=== PATIENT | female | born 1965 | race Caucasian/White ===

== ENCOUNTER 2024-01-26 03:59 | Emergency (ER) | payer BC, SELFPAY ==
[2024-01-26 03:59] VITALS: BP 198/119; PULSE 98; RESP 18; TEMP 36.8; O2SAT 96; BMI 21.7
--- NOTE | 2024-01-26 04:09 | HMH.EDGENADL ---
Discharge Plan Disposition Patient Disposition: Home, Self-Care Condition: Good Activity Restrictions/Add. Instructions Additional Instructions/Restrictions: You were evaluated in the ER and are appropriate for discharge at this time. Keep the wound clean and dry. The stitches will fall out on their own. Once the wound is completely healed, use sunscreen and vitamin E oil to help limit scarring. Follow-up with your primary care doctor in 3 days for reevaluation. Return to the ER with new, worsening, or otherwise concerning symptoms. Clinical Impressions Clinical Impression: Laceration Instructions Patient Instructions: DI for Laceration Repair Discharge ED Provider: Amalia Noble Adult HPI General Chief complaint: Wound/Laceration Stated complaint: laceration Time Seen by Provider: 01/26/24 04:01 History of Present Illness HPI narrative: 58-year-old female with a history of hypertension, COPD presents to the ER for complaint of left eyebrow laceration. Patient reports that she tripped striking her left eyebrow on a bucket and striking her right eyebrow on a chair. She denies losing consciousness. She does not take any blood thinners. Denies any neck pain, numbness, tingling, weakness. Patient has been ambulatory since the incident. She denies any fevers, chills, chest pain, difficulty breathing, nausea, vomiting, diarrhea. EMS transported the patient to the ER for laceration repair. They report she was mildly tachycardic and hypertensive in route. Patient has no complaints aside from the laceration at this time. Patient admits to marijuana use earlier today but denies other illicit drugs, no alcohol today. Related Data Allergies Allergy/AdvReac Type Severity Reaction Status Date / Time No Known Allergies Allergy Verified 01/26/24 04:20 [facility] Disclaimer: The information contained in this section may have been updated after the patient was seen, as this information can be updated by other users. Social History Smoking Status: Current every day smoker alcohol intake: current current occupational status: other Travel in the last 8 weeks: None ROS Obtained: Yes All systems reviewed & no additional complaints except as documented Positive ROS per HPI Physical Exam General General appearance: alert and in no apparent distress Head Head exam: normocephalic and other (Small hematoma over right eyebrow, no underlying deformity, soft, mobile. 1 cm laceration just superior to lateral edge of left eyebrow. Hemostatic. Small hematoma, no underlying deformity appreciated) Eye Eye exam: Present PERRL, EOMI and other (No hyphema); Absent conjunctival redness ENT ENT exam: Present mucous membranes moist Neck Neck exam: Present normal inspection and full ROM; Absent tenderness Chest Chest inspection: Present symmetric chest wall rise; Absent tenderness Respiratory Respiratory exam: Present normal lung sounds bilaterally; Absent respiratory distress, wheezes or stridor Cardiovascular Cardiovascular exam: Present regular rate and normal rhythm Abdominal Exam Abdominal exam: Present soft; Absent distention, tenderness, guarding or rebound Extremities Exam Extremities exam: Present full ROM and other (No findings of injury on exam of extremities); Absent tenderness, edema or joint swelling Back Exam Back exam: Absent tenderness Neurological Exam Neurological exam: Present alert and oriented X3; Absent motor sensory deficit Psychiatric Psychiatric exam: Present normal affect and normal mood Skin Skin exam: Present warm and dry Medical Decision Making Guillermo Inquiry Pt receiving controlled substance: No Vital Signs: 01/26/24 03:59 Temperature 98.3 F Temperature Source Oral Pulse Rate [Left] 98 H Respiratory Rate 18 Blood Pressure [Right Arm] 198/119 H Blood Pressure Mean [Right Arm] 145 02 Sat by Pulse Oximetry 96 Oxygen Delivery Method Room Air Orders (Tests/Meds): ED M
[2024-01-26 05:32] VITALS: BP 182/105; PULSE 99; RESP 18; TEMP 36.9; O2SAT 99
== END 2024-01-26 05:30 | disposition home or self-care (01) ==
PROVIDERS: Emergency Provider Emergency Medicine; PCP Family Medicine
DX: S00.11XA Contusion of right eyelid and periocular area, initial encounter (principal); S01.112A Laceration without foreign body of left eyelid and periocular area, initial encounter; I10 Essential (primary) hypertension; R00.0 Tachycardia, unspecified; W01.190A Fall on same level from slipping, tripping and stumbling with subsequent striking against furniture, initial encounter; Y92.9 Unspecified place or not applicable; J44.9 Chronic obstructive pulmonary disease, unspecified
CPT/HCPCS: 12011; 90715; 96372; 99284

== ENCOUNTER 2024-06-26 17:33 | Emergency (ER) | payer MEDICAID, SELFPAY ==
[2024-06-26 17:33] VITALS: BP 212/121; PULSE 93; RESP 20; TEMP 36.6; O2SAT 100; BMI 21.7
[2024-06-26 18:03] VITALS: BP 175/121
--- NOTE | 2024-06-26 18:04 | HMH.EDGENADL ---
Discharge Plan Disposition Patient Disposition: Home, Self-Care Chief Complaint: Recheck/Abnormal Lab/Rx Referrals Follow up/Referrals: Craig Juarez [Primary Care Provider] - See instructions Activity Restrictions/Add. Instructions Additional Instructions/Restrictions: At this time it was felt you are safe to be discharged home. If new or worsening symptoms please do not hesitate to return the emergency department. Clinical Impressions Clinical Impression: Asymptomatic hypertension, Encounter for medication refill Print Language Print Language: Malay Discharge ED Provider: Jaison Whiting General Adult HPI General Chief complaint: Recheck/Abnormal Lab/Rx Stated complaint: HI BP Time Seen by Provider: 06/26/24 17:39 Mode of Arrival: EMS Source of Information: Patient and EMS Limitations: No Limitations Description of Symptoms (Recalled from ER Triage Doc. by RN): pt states she has been out of BP meds for one month, says she is living with her sister and they have christiano froze inside of a car History of Present Illness HPI narrative: Patient is a 58-year-old female with past medical history of longstanding hypertension that is currently trying to be controlled with medications who presents emergency department for evaluation of high blood pressure. She took it at home and it was in the high 190s and she began to see spots which she has seen multiple times before when her blood pressure gets above 190. No headache, no chest pain, no other acute complaints at this time. She contacted 911 because she does not have her medication filled as they fell out of her pocket a month ago and she has been unable to take them. She thinks it is lisinopril. Upon arrival after sitting in bed with her blood pressure in the 170s she says that she has no symptoms, no seeing spots, no chest pain, no abdominal pain reported, no other acute complaints at this time. Related Data Home Medications ?Medication ?Instructions ?Recorded ?Confirmed lisinopril 40 mg tablet 40 mg PO DAILY 06/26/24 06/26/24 Allergies Allergy/AdvReac Type Severity Reaction Status Date / Time No Known Allergies Allergy Verified 01/26/24 04:20 [facility] Disclaimer: The information contained in this section may have been updated after the patient was seen, as this information can be updated by other users. Social History (Updated 01/26/24 @ 05:16 by Amalia Noble MD) Smoking Status: Current every day smoker alcohol intake: current current occupational status: other Travel in the last 8 weeks: None Have you lived/traveled outside [place] in past 30 days?: No Contact w/someone who lives/traveled outside [place] past 30 days?: No Exposure to someone with infectious disease in past 14 days?: No Do you have a fever (greater than 100.4 F or 38 C)?: No Have you tested positive for COVID-19: No Exposed to someone with COVID-19 in past 14 days?: No Do you have a sore throat?: No Do you have a cough?: No Do you have any weakness?: No Do you have any diarrhea?: No Are you experiencing any unusual bleeding?: No Do you have any muscle aches/pain?: No Do you have any abdominal pain?: No Are you experiencing loss of taste or smell?: No ROS Obtained: Yes Systems reviewed as appropriate & no additional complaints except as documented Physical Exam General General appearance: alert and in no apparent distress Head Head exam: atraumatic and normocephalic Eye Eye exam: Present PERRL ENT ENT exam: Present mucous membranes moist Neck Neck exam: Present normal inspection Chest Chest inspection: Present normal inspection and symmetric chest wall rise Respiratory Respiratory exam: Present normal lung sounds bilaterally; Absent respiratory distress Cardiovascular Cardiovascular exam: Present regular rate and normal rhythm Abdominal Exam Abdominal exam: Present soft; Absent tenderness Extremities Exam Extremities exam: Present normal inspection Neurological Exam Neurological exam: Present alert, oriented X3 and CN II-XII intact Psychiatric Psychiatric exam: Present normal affect Skin Skin exam: Present warm and dry Medical Decision Making Medical Records Screening: Per USPSTF and CDC recommendations, given the prevalence of disease in our region, it is our hospital?s policy to screen for HIV and viral Hepatitis for all patients aged 18 and over and those with ongoing risk factors. Guillermo Inquiry Pt receiving controlled substance: No Vital Signs: 06/26/24 17:33 Temperature 97.9 F Temperature Source Oral Pulse Rate [Left Radial] 93 H Respiratory Rate 20 Blood Pressure [Right Arm] 212/121 H Blood Pressure Mean [Right Arm] 151 02 Sat by Pulse Oximetry 100 Oxygen Delivery Method Room Air Medical Decision Narrative: In summary patient is a 58-year-old female past medical history described above presents emergency department for evaluation of elevated blood pressure. Patient is asymptomatic upon arrival, after sitting in bed for a few minutes recycle blood pressures in the 170s systolic. She does not have any visual complaints and has seen spots when it is above 190 multiple times before. She has no chest pain, no symptoms. Given that she has asymptomatic hypertension workup with labs and imaging was considered but will be deferred at this time. It was further found out that patient takes 40 mg of lisinopril daily for which patient will be given a dose in the emergency department and will be discharged with a prescription for lisinopril to bridge her to her PCP follow-up. She was given multiple extensive return precautions and verbalized understanding is appropriate for outpatient management at this time. Critical Care Critical Care Time Critical Care Time: No
[2024-06-26] MEDS: LISINOPRIL 20MG TABLET 40 MG PO (18:12)
[2024-06-26 18:35] VITALS: BP 166/91; PULSE 70; RESP 20; TEMP 36.8; O2SAT 98
--- NOTE | 2024-06-26 18:37 | PC.NURSE ---
PT D/C TO LOBBY TO WAIT ON RIDETIARRA PT IS ALOX4, PROVIDED WITH FOOD
== END 2024-06-26 18:39 | disposition home or self-care (01) ==
PROVIDERS: Emergency Provider Emergency Medicine; PCP Family Medicine
DX: I10 Essential (primary) hypertension (principal); H53.8 Other visual disturbances; Z76.0 Encounter for issue of repeat prescription; Z72.0 Tobacco use
CPT/HCPCS: 99283

== ENCOUNTER 2025-02-28 05:17 | Observation (INO) | payer MEDICAID, SELFPAY ==
[2025-02-28] VITALS (52 sets, daily range): BP systolic 124–199; BP diastolic 66–127; PULSE 78–113; RESP 15–29; TEMP 36–36.8; O2SAT 90–100; BMI 25.3; BMI 22.0
--- NOTE | 2025-02-28 05:14 | XR_ITS ---
PROCEDURE INFORMATION: Exam: XR Chest Exam date and time: 02/28/2025 5:24 AM Age: 59 years old Clinical indication: Other: Respiratory distress TECHNIQUE: Imaging protocol: Radiologic exam of the chest. Views: 1 view. COMPARISON: No relevant prior studies available. FINDINGS: Lungs: Mild hyperinflation and hyperlucency with diffuse chronic interstitial changes consistent with likely underlying COPD. Some mildly increased airspace opacities seen in the right mid and lower chest which may represent developing superimposed infiltrate. Pleural spaces: Unremarkable. No pleural effusion. No pneumothorax. Heart/Mediastinum: Unremarkable. No cardiomegaly. Bones/joints: Unremarkable. IMPRESSION: Mild hyperinflation and hyperlucency with diffuse chronic interstitial changes consistent with likely underlying COPD. Some mildly increased airspace opacities seen in the right mid and lower chest which may represent developing superimposed infiltrate.
[2025-02-28 05:19] LABS: VBG HCO3 13.4 mmol/L (23-30); VBG PO2 87.3 mmol/L (28-40)
--- NOTE | 2025-02-28 05:19 | ECG_ITS ---
APPROVED REPORT Exam: Resting ECG HR:105 bpm ECG Measurements Heart Rate [address] 112 P 71 QRSd 89 QRS 56 QT 373 T 83 QTc 434 Conclusion SINUS TACHYCARDIA WITH SHORT CT INTERVAL ABNORMAL RHYTHM ECG UNCONFIRMED REPORT Electronically signed by : SAV BEAN, 02/28/2025 22:57:50
[2025-02-28 05:25] LABS: Alanine Aminotransferase 47 U/L (12-78); Albumin Level 4.3 g/dl (3.5-5.0); Albumin/Globulin Ratio 1.4 (1.1-1.8); Alkaline Phosphatase 90 U/L (38-126); Anion Gap 24.4 mEq/L (5-15); Aspartate Amino Transferase 117 U/L (14-36); Bilirubin,Total 0.6 mg/dl (0.2-1.3); Blood Urea Nitrogen 19 mg/dl (7-17); Calcium 8.9 mg/dl (8.4-10.2); Carbon Dioxide 14 mmol/L (22.0-30.0); Chloride 104 mmol/L (98-107); Creatinine,Serum 1.10 mg/dl (0.52-1.04); Estimated Glomerular Filt Rate 51 ml/min (>60); GFR (African American) 61 ML/MIN (>60); Globulin 3.0 g/dL (1.3-3.2); Glucose 269 mg/dl (74-100); Potassium 3.4 mmoL/L (3.5-5.1); Sodium 139 mmol/L (136-145); Total Protein,Serum 7.3 g/dl (6.3-8.2)
[2025-02-28] MEDS: IPRATROPIUM/ALBUTEROL 3 ML NEB 6 ML IH (05:25)
[2025-02-28 05:36] LABS: Hematocrit 44.4 % (37.0-47.0); Hemoglobin 13.8 g/dL (12.2-16.2); Immature Granulocytes % 0.8 %; Mean Corpuscular HGB Conc 31.1 g/dL (31.8-35.4); Mean Corpuscular Hemoglobin 31.3 pg (27.0-31.2); Mean Corpuscular Volume 100.7 fl (81-99); Nucleated Red Blood Cells % 0 %; Platelet Count 377 K/mm3 (142-424); Red Blood Count 4.41 M/mm3 (4.20-5.40); Red Cell Distribution Width-SD 47.1 fL; White Blood Count 11.3 K/mm3 (4.8-10.8)
[2025-02-28 05:37] LABS: NT Pro Brain Natriuretic Pep. 1500 pg/mL (0-125)
[2025-02-28 05:39] LABS: Lactate Venous 10.3 mmol/L (0.4-2.0); Troponin I < 0.01 ng/ml (0.00-0.034); VBG PCO2 54.1 mmol/L (35-51); VBG PH 7.01 mmol/L (7.31-7.41)
[2025-02-28] MEDS: NITROGLYCERIN IN 5 % DEXTROSE 250 ML 3 MG IV (05:43)
[2025-02-28 05:51] LABS: Creatine Kinase 84 U/L (30-135)
[2025-02-28 05:52] LABS: D-Dimer 1.63 ug/mL (0.0-0.5); Magnesium 2.2 mg/dl (1.6-2.3); Phosphorous 6.1 mg/dl (2.5-4.5)
--- NOTE | 2025-02-28 06:04 | HMH.EDGENADL ---
Discharge Plan Disposition Patient Disposition: Admitted Prescriptions Prescriptions: No Action lisinopril 40 mg Tablet 40 mg PO DAILY lisinopril 40 mg tablet 40 mg PO DAILY Qty: 30 0RF Rx Instructions: Do not combine with other lisinopril Referrals Follow up/Referrals: Provider,MD Raulito [Primary Care Provider, Medical] - See instructions Clinical Impressions Clinical Impression: Flash pulmonary edema, Respiratory failure with hypoxia, Pneumonia Print Language Print Language: Italian Discharge ED Provider: Casimiro Saab General Adult HPI General Chief complaint: Shortness of Breath/Dyspnea Stated complaint: Respitory distress Time Seen by Provider: 02/28/25 05:20 Mode of Arrival: EMS Source of Information: Patient and EMS Description of Symptoms (Recalled from ER Triage Doc. by RN): PT brought to the ED for evaluation of Respiratory Distress. PT stated she had been feeling bad since 0200 on this date. History of Present Illness HPI narrative: 59-year-old female with reported history of COPD and hypertension presents for severe respiratory distress. Per EMS, she was found on the ground in a position satting in the low 80s, sounding stridorous. On arrival patient is in severe respiratory distress and is unable to effectively communicate. Reports that she has been feeling bad since 2 AM. Related Data Home Medications ?Medication ?Instructions ?Recorded ?Confirmed lisinopril 40 mg tablet 40 mg PO DAILY 06/26/24 06/26/24 Previous Rx's ?Medication ?Instructions ?Recorded lisinopril 40 mg tablet 40 mg PO DAILY HTN #30 tabs 06/26/24 Allergies Allergy/AdvReac Type Severity Reaction Status Date / Time No Known Allergies Allergy Verified 01/26/24 04:20 [facility] Disclaimer: The information contained in this section may have been updated after the patient was seen, as this information can be updated by other users. Social History (Updated 01/26/24 @ 05:16 by Amalia Noble MD) Smoking Status: Current every day smoker alcohol intake: current current occupational status: other Travel in the last 8 weeks?: None Have you lived/traveled outside [place] in past 30 days?: No Contact w/someone who lives/traveled outside US past 30 days?: No Exposure to someone with infectious disease in past 14 days?: No Do you have a fever (greater than 100.4 F or 38 C)?: No Have you tested positive for COVID-19?: No Exposed to someone with COVID-19 in past 14 days?: No Do you have a sore throat?: No Do you have a cough?: No Do you have any weakness?: No Do you have any diarrhea?: No Are you experiencing any unusual bleeding?: No Do you have any muscle aches/pain?: No Do you have any abdominal pain?: No Are you experiencing loss of taste or smell?: No ROS Obtained: Yes All systems reviewed & no additional complaints except as documented Physical Exam General General appearance: alert and in distress Head Head exam: atraumatic and normocephalic Eye Eye exam: Present normal appearance, PERRL and EOMI ENT ENT exam: Present normal oropharynx and normal external ear exam Neck Neck exam: Present normal inspection and full ROM Chest Chest inspection: Present normal inspection and symmetric chest wall rise; Absent tenderness Respiratory Respiratory exam: Present respiratory distress (Tachypneic to the mid 40s, no significant wheezing, expiratory phase is not prolonged) and accessory muscle use; Absent stridor Cardiovascular Cardiovascular exam: Present normal rhythm and tachycardia Abdominal Exam Abdominal exam: Present soft; Absent distention, tenderness or guarding Extremities Exam Extremities exam: Present normal inspection; Absent edema or joint swelling Back Exam Back exam: Present normal inspection; Absent tenderness Neurological Exam Neurological exam: Present alert; Absent motor sensory deficit Psychiatric Psychiatric exam: Present agitated and anxious Skin Skin exam: Present warm, dry and normal color Lymphatic Lymphatic Findings: no adenopathy Medical Decision Making Medical Records Medical records reviewed: Yes I reviewed the patient's medical records. Screening: Per USPSTF and CDC recommendations, given the prevalence of disease in our region, it is our hospital?s policy to screen for HIV and viral Hepatitis for all patients aged 18 and over and those with ongoing risk factors. Guillermo Inquiry Pt receiving controlled substance: No Guillermo was queried for this patient: No Vital Signs: 02/28/25 05:25 02/28/25 05:25 02/28/25 05:30 Temperature Temperature Source Pulse Rate 98 H 98 H Pulse Rate [Right] Respiratory Rate Blood Pressure 199/127 H Blood Pressure [Right Arm] Blood Pressure Mean 151 Blood Pressure Mean [Right Arm] 02 Sat by Pulse Oximetry Oxygen Delivery Method Fraction of Inspired Oxygen 02/28/25 05:33 02/28/25 05:33 02/28/25 06:00 Temperature Temperature Source Pulse Rate 87 Pulse Rate [Right] 113 H Respiratory Rate 24 23 Blood Pressure 192/110 H Blood Pressure [Right Arm] 199/127 H Blood Pressure Mean 149 Blood Pressure Mean [Right Arm] 151 02 Sat by Pulse Oximetry 100 100 Oxygen Delivery Method BiPAP BiPAP Fraction of Inspired Oxygen 80 02/28/25 06:10 02/28/25 06:13 02/28/25 06:15 Temperature 96.8 F L 96.8 F L 96.8 F L Temperature Source Pulse Rate 100 H 99 H 92 H Pulse Rate [Right] Respiratory Rate 22 27 H 21 Blood Pressure 170/104 H 185/121 H 171/116 H Blood Pressure [Right Arm] Blood Pressure Mean 131 133 128 Blood Pressure Mean [Right Arm] 02 Sat by Pulse Oximetry 100 100 100 Oxygen Delivery Method Fraction of Inspired Oxygen 02/28/25 06:16 02/28/25 06:20 02/28/25 06:25 Temperature 97.0 F L 97.0 F L 97.0 F L Temperature Source Core Pulse Rate 101 H 99 H 97 H Pulse Rate [Right] Respiratory Rate 20 29 H 25 H Blood Pressure 171/116 H 154/99 H 139/89 Blood Pressure [Right Arm] Blood Pressure Mean 117 107 Blood Pressure Mean [Right Arm] 02 Sat by Pulse Oximetry 100 100 100 Oxygen Delivery Method BiPAP Fraction of Inspired Oxygen 02/28/25 06:28 02/28/25 06:45 02/28/25 06:46 Temperature 96.8 F L Temperature Source Core Pulse Rate 97 H 95 H 95 H Pulse Rate [Right] Respiratory Rate 25 H 18 22 Blood Pressure 139/89 186/114 H 175/113 H Blood Pressure [Right Arm] Blood Pressure Mean 126 128 Blood Pressure Mean [Right Arm] 02 Sat by Pulse Oximetry 100 96 97 Oxygen Delivery Method BiPAP Fraction of Inspired Oxygen 02/28/25 07:25 Temperature Temperature Source Pulse Rate Pulse Rate [Right] Respiratory Rate Blood Pressure Blood Pressure [Right Arm] Blood Pressure Mean Blood Pressure Mean [Right Arm] 02 Sat by Pulse Oximetry 100 Oxygen Delivery Method CPAP Fraction of Inspired Oxygen Lab Data Lab results reviewed: Yes I reviewed the patient's lab results. Lab Results 02/28/25 04:50: WBC 11.3 H, RBC 4.41, Hgb 13.8, Hct 44.4, MCV 100.7 H, MCH 31.3 H, MCHC 31.1 L, RDW 12.5, Plt Count 377, MPV 10.8 H, Neut % (Auto) 45.5, Lymph % (Auto) 43.7, [place] % (Auto) 6.9, Eos % (Auto) 2.6, Baso % (Auto) 0.5, Neut # (Auto) 5.1, Lymph # (Auto) 4.9 H, [place] # (Auto) 0.8, Eos # (Auto) 0.3, Baso # (Auto) 0.1, VBG pH 7.01 L, VBG pCO2 54.1 H, VBG pO2 87.3 H, VBG HCO3 13.4 L, VBG Total CO2 15.1 L, VBG O2 Saturation 91.4 H, VBG Base Excess -17.6 L, VBG Lactic Acid 10.3 H, Sodium 139, Potassium 3.4 L, Chloride 104, Carbon Dioxide 14 L, Anion Gap 24.4 H, BUN 19 H, Creatinine 1.10 H, Estimated GFR 51 L, Est GFR ( Amer) 61, Glucose 269 H, Calcium 8.9, Total Bilirubin 0.6, AST 117 H, ALT 47, Alkaline Phosphatase 90, Troponin I < 0.01, NT-Pro-B Natriuret Pep 1500 H, Total Protein 7.3, Albumin 4.3, Globulin 3.0, Albumin/Globulin Ratio 1.4 02/28/25 05:12: D-Dimer 1.63 H, Phosphorus 6.1 H, Magnesium 2.2, Total Creatine Kinase 84, TSH 4.76 H, Thyroxine (T4) 6.9 02/28/25 06:10: VBG pH 7.22 L, VBG pCO2 58.9 H, VBG pO2 27.9 L, VBG HCO3 23.7, VBG Total CO2 25.5, VBG O2 Saturation 37.8 L, VBG Base Excess -4.0 L, VBG Lactic Acid 2.8 H, Urine Color Yellow, Urine Appearance Clear, Urine pH 6.0, Ur Specific [place] 1.020, Urine Protein 2+ A, Urine Glucose (UA) 1+, Urine Ketones Negative, Urine Blood 1+ A, Urine Nitrate Negative, Urine Bilirubin Negative, Urine Urobilinogen 0.2, Ur Leukocyte Esterase Negative, Urine RBC 10-20, Urine WBC 3-5, Ur Squamous Epith Cells Occasional, Urine Bacteria 2+, Urine Opiates Screen Negative, Urine Methadone Screen Negative, Ur Barbituates Screen Negative, Ur Phencyclidine Scrn Negative, Ur Amphetamines Screen Positive H, U Benzodiazepines Scrn Negative, Urine Cocaine Screen Negative, U Marijuana (THC) Screen Negative 02/28/25 04:50 02/28/25 04:50 Orders (Tests/Meds): ED MEDICATIONS Generic Name Dose Route Start Last Admin Trade Name Freq PRN Reason Stop Dose Admin Nitroglycerin/Dextrose 250 mls @ 3 mls/hr 02/28/25 05:45 02/28/25 07:13 Nitroglycerin 50mg/250ml D5w IV 03/30/25 05:44 0 mcg/min .Q24H ALAINA 0 mls/hr Protocol Titration 10 MCG/MIN Levofloxacin/Dextrose 750 mg in 150 mls @ 100 mls/hr 02/28/25 06:00 02/28/25 07:17 Levofloxacin 750mg/150ml Premix IV 03/10/25 05:59 100 mls/hr Q24H ALAINA Administration Discontinued Medications Generic Name Dose Route Start Last Admin Trade Name Freq PRN Reason Stop Dose Admin Albuterol/Ipratropium 6 ml 02/28/25 05:37 02/28/25 05:25 Ipratropium/Albuterol 3 Ml Neb IH 02/28/25 05:38 6 ml ONCE ONE Administration Furosemide 80 mg 02/28/25 05:35 02/28/25 06:12 Furosemide 40mg/4ml Vial IV 02/28/25 05:36 80 mg ONCE ONE Administration Iopamidol 80 ml 02/28/25 06:38 02/28/25 06:39 Iopamidol-370 (76%);100ml Bottle IV 02/28/25 06:39 80 ml ONCE ONE Administration Sodium Chloride 50 ml 02/28/25 06:38 02/28/25 06:39 0.9 % Sodium Chloride 50 Ml Vial IV 02/28/25 06:39 50 ml ONCE ONE Administration Sodium Chloride 10 ml 02/28/25 06:38 02/28/25 06:39 Sodium Chloride 0.9% 10ml Syr (Rad Only) IV 02/28/25 06:39 10 ml ONCE ONE Administration ORDERS Category Date Time Status CTA Chest [CT angio chest - dissection] Stat Cat Scan 02/28/25 06:08 Completed CXR --portable [XR chest portable] Stat Exams 02/28/25 05:14 Completed POCUS Point of Care (ER Only) Stat Exams 02/28/25 05:34 Completed BNP [NT Pro Brain Natriuretic Pep.] Stat Lab 02/28/25 04:50 Completed CBC w/Auto Diff [Complete Blood Count Auto Diff] Stat Lab 02/28/25 04:50 Completed CK [Creatine Kinase] Stat Lab 02/28/25 05:12 Completed CMP [Comprehensive Metabolic Panel] Stat Lab 02/28/25 04:50 Completed D-Dimer Stat Lab 02/28/25 05:12 Completed HIV Combo Stat Lab 02/28/25 05:12 Received Hepatitis C Ab Qual. W/ RFX Stat Lab 02/28/25 05:12 Received Magnesium Stat Lab 02/28/25 05:12 Completed Phosphorous Stat Lab 02/28/25 05:12 Completed T4 (Thyroxine) Stat Lab 02/28/25 05:12 Completed TSH [Thyroid Stimulating Hormone] Stat Lab 02/28/25 05:12 Completed Troponin I Q3H Lab 02/28/25 04:50 Completed Troponin I Q3H Lab 02/28/25 08:15 Ordered UA [Urinalysis and Microscopic] Stat Lab 02/28/25 06:10 Completed UDS [Drug Screen,Urine] Stat Lab 02/28/25 06:10 Completed Urine Culture Stat Micro 02/28/25 06:10 Received VBG [Venous Blood Gas] Stat RT 02/28/25 04:50 Completed VBG [Venous Blood Gas] Stat RT 02/28/25 06:10 Completed ECG Data Tracing #1: I reviewed this ECG and interpreted as documented below: Sinus tachycardia, no significant ST elevation, rate of 105 ECG initial impression date: 02/28/25 ECG initial impression time: 05:19 HEART Score History (anamnesis): Moderately suspicious ECG: Normal Age: 45-65 years Risk factors: 1-2 risk factors Troponin: </= normal limit HEART Score: 3 Medical Decision Narrative: 59-year-old female with history of hypertension and COPD presents for respiratory distress. History was obtained via interactive discussion with patient, EMS, chart review. On arrival, patient is afebrile, hypertensive with systolics 200, satting low mid 90s on EMS, improved from 80s, severe respiratory distress with respiratory rate in the 40s., moving all extremities spontaneously. Full physical exam performed and significant for no significant wheezing, bilateral breath sounds present, faint crackles. Differential includes but is not limited to COPD exacerbation, heart failure, sympathetic crashing pulmonary edema, pneumothorax, PE, dissection. Chest x-ray independently interpreted by me faint pulmonary edema, no pneumothorax. Bedside ultrasound shows diffuse B-lines consistent with pulmonary edema, diastolic dysfunction with grossly poor EF, dynamic RV. Patient was immediately placed on BiPAP with significant improvement in respiratory distress. Given DuoNeb x 2, 60 of Lasix, initiated on nitro drip, given Levaquin for possible infection. Workup initiated including broad-spectrum labs, VBG, chest x-ray, CTA chest. On re-evaluation, patient markedly improved after BiPAP and nitro drip. Laboratory workup independently interpreted by me and significant for initial VBG with pH 7.0, lactate of 10, pCO2 only minimally elevated. Repeat VBG after interventions shows pH of 7.22, lactate of 2.8, stable pCO2. BNP elevated at 1500, D-dimer elevated 1.6, negative initial troponin, mild leukocytosis noted. Imaging independently interpreted by me and significant for possible dependent airspace disease, pulmonary edema see radiology read for full review of final results. Given patient history, exam and workup, patient's presentation most likely represents flash pulmonary edema. Patient markedly improved after BiPAP, nitro drip. Procedures Risk/Benefits of Procedure(s) Were Explained: Yes Limited Ultrasound Indication:: Limited cardiac ultrasound Indication: Shortness of air Views Obtained: PLAX, PSAX, Apical 4-chamber, Subxiphoid Findings: LV hypertrophy, grossly diminished EF, diastolic dysfunction, no pericardial effusion but grossly normal TAPSE Impression: LV hypertrophy, grossly diminished EF, diastolic dysfunction, no pericardial effusion but grossly normal TAPSE Images were saved to permanent archive The study was technically adequate This study was performed by me, and I personally interpreted all images/videos. Views:: Limited lung ultrasound A focused ultrasound exam of the pleural spaces was performed to evaluate for pneumothorax, pulmonary edema, pleural effusion and/or consolidation. The ultrasound was performed with the following indications, as noted in the H&P: Respiratory failure Identified structures: Bilateral thoracic cavities were examined. Findings: Lung sliding: - Present bilaterally B-lines: - Present throughout Pleural effusion: - Absent bilaterally Consolidation: Absent bilateral Impression: Diffuse B-lines consistent with pulmonary edema Images were saved to permanent archive The study was technically adequate CPT 95079-48 This study was performed by me, and I personally interpreted all images/videos. Critical Care Critical Care Time Critical Care Time: Yes Attestation: On 02/28/25, the high probability of a clinically significant, sudden or life threatening deterioration of the following system(s) required my full and direct attention, intervention and personal management. The time I documented below is in addition to time spent performing reported procedures but includes the following listed in this critical care notation. Total Time Total Critical Care Time: 65
--- NOTE | 2025-02-28 06:08 | CT_ITS ---
PROCEDURE INFORMATION: Exam: CTA Chest With Contrast Exam date and time: 02/28/2025 6:40 AM Age: 59 years old Clinical indication: Other: Cp, SOA, HTN, HX pe, TECHNIQUE: Imaging protocol: Computed tomographic angiography of the chest with contrast. Exam focused on the arteries. 3D rendering (Not supervised by radiologist): MIP and/or 3D reconstructed images were created by the technologist. Radiation optimization: All CT scans at this facility use at least one of these dose optimization techniques: automated exposure control; mA and/or kV adjustment per patient size (includes targeted exams where dose is matched to clinical indication); or iterative reconstruction. Contrast material: ISO 370; Contrast volume: 80 ml; Contrast route: INTRAVENOUS (IV); COMPARISON: CR XR CHEST PORTABLE 02/28/2025 5:24 AM FINDINGS: Pulmonary arteries: Normal. No pulmonary emboli. Aorta: Unremarkable. No aortic aneurysm. No aortic dissection. Lungs: Moderate to severe centrilobular emphysema. Diffuse thickening of the interlobular septa and diffuse ground-glass opacity consistent with volume overload. Prominent dependent airspace disease is noted bilaterally, likely atelectasis but infiltrate can not be entirely excluded. Pleural spaces: Unremarkable. No pneumothorax. No pleural effusion. Heart: Cardiomegaly with left ventricular dilatation. Coronary arteries: No coronary calcium. Lymph nodes: Unremarkable. No enlarged lymph nodes. Bones/joints: Unremarkable. No acute fracture. Soft tissues: Unremarkable. IMPRESSION: 1. No evidence of pulmonary embolus. 2. Moderate to severe centrilobular emphysema. 3. Diffuse thickening of the interlobular septa and diffuse ground-glass opacity consistent with volume overload. 4. Prominent dependent airspace disease is noted in the lung bases bilaterally, likely atelectasis but infiltrate can not be entirely excluded. 5. Cardiomegaly with left ventricular dilatation. COMMENTS: The presence of pulmonary emphysema on CT is an independent risk factor for lung cancer. In the absence of a history or active diagnosis of lung cancer, it is recommended that this patient with emphysema be evaluated for enrollment in a low dose CT lung cancer screening program.
[2025-02-28 06:09] LABS: T4 (Thyroxine) 6.9 ug/dl (5.53-11.0)
[2025-02-28] MEDS: FUROSEMIDE 40MG/4ML VIAL 80 MG IV (06:12)
[2025-02-28 06:15] LABS: Microscopic, Urine URINE MICROSCOPIC (MICROSCOPIC); VBG HCO3 23.7 mmol/L (23-30); VBG PH 7.22 mmol/L (7.31-7.41); VBG PO2 27.9 mmol/L (28-40)
[2025-02-28 06:18] LABS: Bilirubin,Urine Negative (Negative); Color,Urine YELLOW (Yellow); Glucose,Urine (UA) 1+ (Negative); Ketones,Urine Negative (Negative); Leukocyte Esterase,Urine Negative (Negative); PH,Urine 6.0 (5.0-8.5); Protein,Urine 2+ (Negative); Specific Gravity, Urine 1.020 (1.005-1.030); Urobilinogen,Urine 0.2 EU/dl (0.2)
[2025-02-28 06:19] LABS: VBG PCO2 58.9 mmol/L (35-51)
[2025-02-28 06:20] LABS: Lactate Venous 2.8 mmol/L (0.4-2.0)
[2025-02-28 06:23] LABS: Thyroid Stimulating Hormone 4.76 uIU/mL (0.465-4.68)
[2025-02-28 06:33] LABS: Bacteria,Urine 2+ /lpf; Squamous Epithelial Cell,Urine Occasional #/hpf (0-5)
[2025-02-28] MEDS: SODIUM CHLORIDE 0.9% 10ML SYR (RAD ONLY) 10 ML IV (06:39)
[2025-02-28] MEDS: IOPAMIDOL-370 (76%);100ML BOTTLE 80 ML IV (06:39)
[2025-02-28] MEDS: 0.9 % SODIUM CHLORIDE 50 ML VIAL IV (06:39)
[2025-02-28 06:52] LABS: Barbiturates Screen,Urine Negative ng/ml (<200)
[2025-02-28 06:53] LABS: Benzodiazepines Screen,Urine Negative ng/ml (<200)
[2025-02-28 06:54] LABS: Amphetamine/Metha Screen,Urine Positive ng/ml (<1000)
[2025-02-28 06:56] LABS: Methadone Screen,Urine Negative ng/ml (<300); Opiate Screen,Urine Negative ng/ml (<300)
[2025-02-28 06:57] LABS: Phencyclidine Screen,Urine Negative ng/ml (<25)
[2025-02-28] MEDS: LEVOFLOXACIN/D5W 750 MG/150 ML 750 MG/150 ML PIGGYBACK 100 MG IV (07:17)
--- NOTE | 2025-02-28 07:35 | PC.NURSE ---
MERCHANDISING SPECIALIST NOTIFIED OF ADMISSION
--- NOTE | 2025-02-28 07:36 | CA_ITS ---
APPROVED REPORT EXAM: Comprehensive 2D, Doppler, and color-flow Echocardiogram Thickener Operator: Rhonda Gonzalez RVT Ht: 5 ft 3 in Wt: 143lbs BSA: 1.68 BP: 175/113 mmHg Indications: RESPIRATORY DISTRESS,FLASH PULMONARY EDEMA,COPD 2D Dimensions LA Volume 43.10 mL LA Volume Index 25.65 mL/m2 (M/F) 16-34 M-Mode Dimensions RVDd 2.18 cm (0.9-2.6) LA Diam 3.06 cm (1.9-4.0) LVDd 4.37 cm (3.5-5.7) LVDs 3.49 cm (3.5-5.7) IVSd 1.17 cm (0.6-1.1) PWd 0.77 cm (0.6-1.1) EF (Teich) 41.50% FS 20.10% EDV (Teich) 86.30 mL TAPSE 2.52 (<1.7) ESV (Teich) 50.50 mL LV Diastology E Decel Time 150 (160-240 msec) E/A Ratio 0.6 Aortic Valve BERNARD Index 1.36 cm2/m2 AoV Peak Shai. 126.0 (50-130 cm/s) AI PHT 1143.00 ms AO Peak GR. 6.40 mmHg AO Mean GR. 3.40 (<5 mmHg) AO VTI 15.9 (18-25 cm) BERNARD (VTI) 2.34 (2.5-4.5 cm2) Mitral Valve MV E Max Shai. 87.0 (40-130 cm/s) MV A Velocity 142.0 (40-130 cm/s) E/A Ratio 0.61 MV PHT 44.0 ms Pulmonary Valve PV Peak Velocity 88.0 (50-150 cm/s) Left Ventricle The left ventricle is normal size. Left ventricular systolic function is severely reduced. There is increased left ventricular wall thickness. There is severe global hypokinesis present. The septum is asynchronous. Grade 2 diastolic dysfunction is present. LVEF is 25% Right Ventricle The right ventricle is normal size. The right ventricular systolic function is normal. Atria The left atrium is mildly dilated. The right atrium size is normal. There is no color Doppler evidence of interatrial shunt. Aortic Valve The aortic valve is mildly thickened. There is no hemodynamically significant aortic valvular stenosis. Mild aortic regurgitation is present. Mitral Valve The mitral valve is mildly thickened. No evidence of mitral valve stenosis. Mild mitral regurgitation is present. Tricuspid Valve The tricuspid valve leaflets are thin and pliable. Trace tricuspid regurgitation. There is insufficient TR jet to estimate RVSP. Pulmonic Valve The pulmonary valve is grossly normal in structure. Trace pulmonic valve regurgitation is present. Great Vessels The aortic root is normal in size. IVC is normal in size and collapses >50% with inspiration. Pericardium There is no pericardial effusion. Other Information Study Quality: Technically Difficult Conclusion Severe reduction in LV systolic function (LVEF 25%). Grade 2 diastolic dysfunction. Asynchronous septum. Mild LA dilation. Mild AI, mild MR. Electronically signed by : Mildred Rivera MD 02/28/2025 11:44:59
[2025-02-28 07:42] LABS: Hepatitis C Ab Qual. W/ RFX NEGATIVE (Negative)
--- NOTE | 2025-02-28 08:08 | EXP.HP ---
History of Present Illness *Admission Date: 02/28/25 *Reason for visit:: Shortness of breath *History of present illness: Gauri Benitez is a 59-year-old female with a medical history significant for hypertension, substance use disorder in remission who presented with acute progressive shortness of breath. She states she awoke early this morning around 2 AM with shortness of breath which progressively became worse. Denies chest pain, fever/chills, abdominal pain. On arrival, patient was satting in the low 80s on room air in respiratory distress, in position. On arrival, patient's blood pressure was 198/119. She denies recent cough, recent sickness but does endorse her blood pressures have been always high. Workup in the ED significant for WBC 11.3, MCV 100.7, D-dimer 1.63, VBG pH 7.01 with pCO2 of 58.7, lactic acid 10.3, BNP 1500, UDS positive for amphetamines. Patient states she has not used any illicit substances for many years, but does have a family member at home that smokes methamphetamine. CTA chest suggestive of moderate to severe emphysema, pulmonary edema, and cardiomegaly. No pulmonary embolism. Patient was placed on CPAP, given DuoNebs, started on nitro drip, given IV Lasix 40 mg and levofloxacin 750 mg. Given these findings, ED provider discussed case with me and I decided to admit patient for flash pulmonary edema, hypertensive emergency, suspected heart failure. [facility] Disclaimer: The information contained in this section may have been updated after the patient was seen, as this information can be updated by other users. Medical History History of pulmonary embolism History of COPD History of hypertension Surgical History History of tubal ligation Family History Other Family history of cancer Family history of diabetes mellitus (DM) Social History Smoking Status: Current every day smoker alcohol intake: current current occupational status: unemployed Travel in the last 8 weeks?: None Have you lived/traveled outside US in past 30 days?: No Contact w/someone who lives/traveled outside US past 30 days?: No Exposure to someone with infectious disease in past 14 days?: No Do you have a fever (greater than 100.4 F or 38 C)?: No Have you tested positive for COVID-19?: No Exposed to someone with COVID-19 in past 14 days?: No Do you have a sore throat?: No Do you have a cough?: No Do you have any weakness?: No Are you experiencing any nausea/vomitting?: No Do you have any diarrhea?: No Are you experiencing any unusual bleeding?: No Do you have any muscle aches/pain?: No Do you have any abdominal pain?: No Are you experiencing loss of taste or smell?: No Meds Home Medications and Allergies Home Medications ?Medication ?Instructions ?Recorded ?Confirmed ?Type lisinopril 40 mg tablet 40 mg PO DAILY 06/26/24 02/28/25 History New Prescriptions to Start Prescriptions: Allergies Allergy/AdvReac Type Severity Reaction Status Date / Time No Known Allergies Allergy Verified 02/28/25 09:19 Exam Data for Last 24 hours Vital signs and Labs for Last 24 Hours: Temp Pulse Resp BP Pulse Ox O2 Del Method FiO2 97.6 F 98 H 18 137/94 H 100 BiPAP 80 02/28/25 07:46 02/28/25 07:46 02/28/25 07:46 02/28/25 07:46 02/28/25 07:25 02/28/25 07:46 02/28/25 05:33 Laboratory Results - last 24 hr 02/28/25 04:50: WBC 11.3 H, RBC 4.41, Hgb 13.8, Hct 44.4, MCV 100.7 H, MCH 31.3 H, MCHC 31.1 L, RDW 12.5, Plt Count 377, MPV 10.8 H, Neut % (Auto) 45.5, Lymph % (Auto) 43.7, [place] % (Auto) 6.9, Eos % (Auto) 2.6, Baso % (Auto) 0.5, Neut # (Auto) 5.1, Lymph # (Auto) 4.9 H, [place] # (Auto) 0.8, Eos # (Auto) 0.3, Baso # (Auto) 0.1, VBG pH 7.01 L, VBG pCO2 54.1 H, VBG pO2 87.3 H, VBG HCO3 13.4 L, VBG Total CO2 15.1 L, VBG O2 Saturation 91.4 H, VBG Base Excess -17.6 L, VBG Lactic Acid 10.3 H, Sodium 139, Potassium 3.4 L, Chloride 104, Carbon Dioxide 14 L, Anion Gap 24.4 H, BUN 19 H, Creatinine 1.10 H, Estimated GFR 51 L, Est GFR ( Amer) 61, Glucose 269 H, Calcium 8.9, Total Bilirubin 0.6, AST 117 H, ALT 47, Alkaline Phosphatase 90, Troponin I < 0.01, NT-Pro-B Natriuret Pep 1500 H, Total Protein 7.3, Albumin 4.3, Globulin 3.0, Albumin/Globulin Ratio 1.4 02/28/25 05:12: D-Dimer 1.63 H, Phosphorus 6.1 H, Magnesium 2.2, Total Creatine Kinase 84, TSH 4.76 H, Thyroxine (T4) 6.9, HCV Ab AYDIN w/Rflx PCR Qn Negative, HIV Ag/Ab Combo Qual Negative 02/28/25 06:10: VBG pH 7.22 L, VBG pCO2 58.9 H, VBG pO2 27.9 L, VBG HCO3 23.7, VBG Total CO2 25.5, VBG O2 Saturation 37.8 L, VBG Base Excess -4.0 L, VBG Lactic Acid 2.8 H, Urine Color Yellow, Urine Appearance Clear, Urine pH 6.0, Ur Specific [place] 1.020, Urine Protein 2+ A, Urine Glucose (UA) 1+, Urine Ketones Negative, Urine Blood 1+ A, Urine Nitrate Negative, Urine Bilirubin Negative, Urine Urobilinogen 0.2, Ur Leukocyte Esterase Negative, Urine RBC 10-20, Urine WBC 3-5, Ur Squamous Epith Cells Occasional, Urine Bacteria 2+, Urine Opiates Screen Negative, Urine Methadone Screen Negative, Ur Barbituates Screen Negative, Ur Phencyclidine Scrn Negative, Ur Amphetamines Screen Positive H, U Benzodiazepines Scrn Negative, Urine Cocaine Screen Negative, U Marijuana (THC) Screen Negative I & O for Last 24 hours: Intake & Output 02/25/25 02/26/25 02/27/25 02/28/25 23:59 23:59 23:59 23:59 Intake Total 4.475 / 4.475 Balance 4.475 / 4.475 Weight 64.864 kg Constitutional Constitutional: no acute distress *Routine HEENT Exam Head: Present normocephalic Eye: Present EOMI and PERRL ENT: Present mucous membranes moist *Routine Neck Exam Neck: Present supple; Absent lymphadenopathy *Routine Respiratory Exam Respiratory: Present CTA bilaterally *Routine Cardiovascular Exam Cardiovascular: Present RRR *Routine Abdominal Exam Abdominal: Present soft and normoactive bowel sounds; Absent tenderness *Routine Rectal Exam Rectal:: deferred *Routine Genitalia Exam Genitalia:: deferred *Routine Extremities Exam Extremities: Present edema; Absent cyanosis or clubbing *Routine Skin Exam Skin: Present warm; Absent rash *Routine Neurological Exam Neurological: Present alert and oriented X3 Assessment and Plan *Assessment and plan (1) Hypertensive emergency: Status: Acute Category: Medical Code(s): I16.1 - Hypertensive emergency (2) HFrEF (heart failure with reduced ejection fraction): Status: Acute Category: Medical Code(s): I50.20 - Unspecified systolic (congestive) heart failure (3) Grade II diastolic dysfunction: Status: Acute Category: Medical Code(s): I51.89 - Other ill-defined heart diseases (4) Amphetamine substance use disorder, moderate, in early remission: Status: Acute Category: Medical Code(s): F15.21 - Other stimulant dependence, in remission (5) CKD (chronic kidney disease) stage 3, GFR 30-59 ml/min: Status: Acute Category: Medical Code(s): N18.30 - Chronic kidney disease, stage 3 unspecified Plan Gauri Benitez is a 59-year-old female with a medical history significant for hypertension, substance use disorder in remission who presented with acute progressive shortness of breath. She states she awoke early this morning around 2 AM with shortness of breath which progressively became worse. Denies chest pain, fever/chills, abdominal pain. On arrival, patient was satting in the low 80s on room air in respiratory distress, in position. On arrival, patient's blood pressure was 198/119. She denies recent cough, recent sickness but does endorse her blood pressures have been always high. Workup in the ED significant for WBC 11.3, MCV 100.7, D-dimer 1.63, VBG pH 7.01 with pCO2 of 58.7, lactic acid 10.3, BNP 1500, UDS positive for amphetamines. Patient states she has not used any illicit substances for many years, but does have a family member at home that smokes methamphetamine. CTA chest suggestive of moderate to severe emphysema, pulmonary edema, and cardiomegaly. No pulmonary embolism. Patient was placed on CPAP, given DuoNebs, started on nitro drip, given IV Lasix 40 mg and levofloxacin 750 mg. Given these findings, ED provider discussed case with me and I decided to admit patient for flash pulmonary edema, hypertensive emergency, suspected heart failure. #Acute hypoxic respiratory failure, resolved #Flash pulmonary edema, hypertensive emergency #HFrEF exacerbation #Grade 2 diastolic dysfunction #Lactic acidosis ? Patient presented with acute shortness of breath and found to be in flash pulmonary edema in setting of hypertensive emergency. UDS positive for amphetamines. ? ECHO 02/28/2025 reveals LVEF 25%, G2DD, asynchronous septum. Initial BNP 1500. ? Significantly improved with IV Lasix 80 mg. Diuresed net -6.7 L. On room air now. No respiratory distress. Lactic acid improved to 2.5. ? Cardiology consulted, planning to start GDMT and pursue ischemic workup for HFrEF. ? A1c 5.5%, LDL 67, TSH slightly elevated 4.76 but free T4 normal. ? Patient will need LifeVest upon discharge. ? Started Entresto 24/26 mg, Farxiga 10 mg. Hold off on beta-pat and acute HFrEF setting. Discontinued home lisinopril. ? Continue Lasix 40 mg, spironolactone 25 mg. Follow-up urine output, electrolytes. ? Low concern for pneumonia at this time, will hold off on further antibiotics. ? Continuous cardiac telemetry. ? Follow-up CMP. #Chronic hypercapnic respiratory failure #Chronic tobacco smoker ? VBG pCO2 in the 50s, without acute signs of decompensation. Patient is a chronic smoker. ? Consider inpatient pulmonology referral versus outpatient referral. Will benefit from maintenance inhaler based on symptoms. ? DuoNebs every 6 hours as needed. ? Nicotine patch as needed. #LUCILLE versus CKD stage IIIa ? Creatinine 1.1, GFR 51. Minimize nephrotoxins, renally dose medications. Follow-up morning RFT's. #Substance use disorder ? UDS positive for amphetamines. Patient denies using illicit substances for many years, endorses family member at home smokes and abdomen. #Macrocytosis ? Follow-up morning B12, folate. No anemia noted, hemoglobin 13.8. Full code DVT prophylaxis: Lovenox 40 mg
[2025-02-28 08:22] LABS: Cholesterol 180 mg/dl (140-200); HDL Cholesterol 85 mg/dl (40-60); Triglycerides 120 mg/dl (30-150)
[2025-02-28 08:31] LABS: VBG HCO3 27.8 mmol/L (23-30); VBG PH 7.29 mmol/L (7.31-7.41); VBG PO2 24.0 mmol/L (28-40)
[2025-02-28 08:35] LABS: Lactate Venous 2.5 mmol/L (0.4-2.0); VBG PCO2 58.7 mmol/L (35-51)
[2025-02-28 08:53] LABS: Troponin I 0.03 ng/ml (0.00-0.034)
[2025-02-28 08:53] LABS: Thyroid Stimulating Hormone 5.28 uIU/mL (0.465-4.68)
[2025-02-28 09:11] LABS: Hemoglobin A1C 5.5 % (4.0-6.0)
[2025-02-28 09:17] LABS: Reflex Lactic Add Lactic Reflex
[2025-02-28 09:40] LABS: Free T4 (Free Thyroxine) 1.14 ng/dl (0.78-2.19)
[2025-02-28 09:48] LABS: Lactic Acid Follow Up (RFLX 1) 1.4 mmol/L (0.7-2.1)
--- NOTE | 2025-02-28 10:36 | EXP.CARD.CON ---
History of Present Illness History of Present Illness Consult date: 02/28/25 Requesting physician: Nico Vela Chief complaint: SOA History of present illness: 59-year-old white female without known cardiovascular disease admitted with acute hypoxic respiratory failure, flash pulmonary edema, and hypertensive crisis which is why we are consulted. I am seeing patient in the ICU the morning after admission. She presented last night with sudden onset severe shortness of breath. She states she was up around 2 AM not feeling well, smoked a cigarette and then began feeling her symptoms which were constant and had no modifying factors. She presented to ER via EMS. Blood pressure on arrival 190/100 20s. CTA showed moderate to severe emphysema with volume overload bilateral atelectasis versus pneumonia cardiomegaly and LV dilation. Labs include white blood cell count 11.3, D-dimer 1.6, creatinine 1.1, glucose 269, proBNP 1500, troponin normal x 2. Urine positive for proteinuria.She was given 80 of Lasix and has diuresed 4.6 L. This morning blood pressure stable 120s over 80s and she reports she is feeling significantly better and near her baseline. EKG sinus rhythm 105 possible LVH. Patient states she is a former marijuana and methamphetamine user but sober since 2019. States she is been living with her sister for the past week who still smokes meth. Patient declines partaking but her UDS is positive for amphetamines. [facility] Disclaimer: The information contained in this section may have been updated after the patient was seen, as this information can be updated by other users. Medical History History of pulmonary embolism History of COPD History of hypertension Surgical History History of tubal ligation Family History Other Family history of cancer Family history of diabetes mellitus (DM) Social History Smoking Status: Current every day smoker alcohol intake: current current occupational status: unemployed Travel in the last 8 weeks?: None Have you lived/traveled outside US in past 30 days?: No Contact w/someone who lives/traveled outside US past 30 days?: No Exposure to someone with infectious disease in past 14 days?: No Do you have a fever (greater than 100.4 F or 38 C)?: No Have you tested positive for COVID-19?: No Exposed to someone with COVID-19 in past 14 days?: No Do you have a sore throat?: No Do you have a cough?: No Do you have any weakness?: No Are you experiencing any nausea/vomitting?: No Do you have any diarrhea?: No Are you experiencing any unusual bleeding?: No Do you have any muscle aches/pain?: No Do you have any abdominal pain?: No Are you experiencing loss of taste or smell?: No Review of Systems Constitutional Constitutional: Denies fatigue and Denies weakness Eyes Eyes: Denies loss of vision ENT Ears, Nose, Mouth, and Throat: Denies hearing loss and Denies vertigo *Cardiovascular Cardiovascular: Denies chest pain, Reports dyspnea and Denies syncope *Respiratory Respiratory: Denies cough and Reports dyspnea *Gastrointestinal Gastrointestinal: Denies change in stool character, Denies nausea and Denies vomiting *Musculoskeletal Musculoskeletal: Denies muscle weakness Integumentary/Breasts Skin/Breast: Denies changing lesions *Neurologic Neurologic: Denies loss of vision, Denies syncope, Denies vertigo and Denies weakness Endocrine Endocrine: Denies fatigue Exam Data for Last 24 hours Vital signs and Labs for Last 24 Hours: Temp Pulse Resp BP Pulse Ox O2 Del Method O2 Flow Rate 98.1 F 95 H 20 128/81 100 Nasal Cannula 3 02/28/25 10:00 02/28/25 10:00 02/28/25 10:00 02/28/25 10:00 02/28/25 10:00 02/28/25 10:00 02/28/25 10:00 FiO2 80 02/28/25 05:33 Laboratory Results - last 24 hr 02/28/25 04:50: WBC 11.3 H, RBC 4.41, Hgb 13.8, Hct 44.4, MCV 100.7 H, MCH 31.3 H, MCHC 31.1 L, RDW 12.5, Plt Count 377, MPV 10.8 H, Neut % (Auto) 45.5, Lymph % (Auto) 43.7, [place] % (Auto) 6.9, Eos % (Auto) 2.6, Baso % (Auto) 0.5, Neut # (Auto) 5.1, Lymph # (Auto) 4.9 H, [place] # (Auto) 0.8, Eos # (Auto) 0.3, Baso # (Auto) 0.1, VBG pH 7.01 L, VBG pCO2 54.1 H, VBG pO2 87.3 H, VBG HCO3 13.4 L, VBG Total CO2 15.1 L, VBG O2 Saturation 91.4 H, VBG Base Excess -17.6 L, VBG Lactic Acid 10.3 H, Sodium 139, Potassium 3.4 L, Chloride 104, Carbon Dioxide 14 L, Anion Gap 24.4 H, BUN 19 H, Creatinine 1.10 H, Estimated GFR 51 L, Est GFR ( Amer) 61, Glucose 269 H, Hemoglobin A1c 5.5, Calcium 8.9, Total Bilirubin 0.6, AST 117 H, ALT 47, Alkaline Phosphatase 90, Troponin I < 0.01, NT-Pro-B Natriuret Pep 1500 H, Total Protein 7.3, Albumin 4.3, Globulin 3.0, Albumin/Globulin Ratio 1.4, Triglycerides 120, Cholesterol 180, LDL Cholesterol Direct 67.11 L, VLDL Cholesterol 24, HDL Cholesterol 85 H, Cholesterol/HDL Ratio 2.1, TSH 5.28 H 02/28/25 05:12: D-Dimer 1.63 H, Phosphorus 6.1 H, Magnesium 2.2, Total Creatine Kinase 84, TSH 4.76 H, Thyroxine (T4) 6.9, HCV Ab AYDIN w/Rflx PCR Qn Negative, HIV Ag/Ab Combo Qual Negative 02/28/25 06:10: VBG pH 7.22 L, VBG pCO2 58.9 H, VBG pO2 27.9 L, VBG HCO3 23.7, VBG Total CO2 25.5, VBG O2 Saturation 37.8 L, VBG Base Excess -4.0 L, VBG Lactic Acid 2.8 H, Urine Color Yellow, Urine Appearance Clear, Urine pH 6.0, Ur Specific [place] 1.020, Urine Protein 2+ A, Urine Glucose (UA) 1+, Urine Ketones Negative, Urine Blood 1+ A, Urine Nitrate Negative, Urine Bilirubin Negative, Urine Urobilinogen 0.2, Ur Leukocyte Esterase Negative, Urine RBC 10-20, Urine WBC 3-5, Ur Squamous Epith Cells Occasional, Urine Bacteria 2+, Urine Opiates Screen Negative, Urine Methadone Screen Negative, Ur Barbituates Screen Negative, Ur Phencyclidine Scrn Negative, Ur Amphetamines Screen Positive H, U Benzodiazepines Scrn Negative, Urine Cocaine Screen Negative, U Marijuana (THC) Screen Negative 02/28/25 08:25: VBG pH 7.29 L, VBG pCO2 58.7 H, VBG pO2 24.0 L, VBG HCO3 27.8, VBG Total CO2 29.6 H, VBG O2 Saturation 38.7 L, VBG Base Excess 1.2, VBG Lactic Acid 2.5 H, Troponin I 0.03, Free T4 1.14 02/28/25 09:34: Lactate 1.4 I & O for Last 24 hours: Intake & Output 02/25/25 02/26/25 02/27/25 02/28/25 23:59 23:59 23:59 23:59 Intake Total 154.475 / 154.475 Output Total 6600 / 6600 Balance -6445.525 / -6445.525 Weight 132 lb 4.438 oz Constitutional Constitutional: no acute distress and cooperative *Routine HEENT Exam Eye: Present PERRL *Routine Respiratory Exam Respiratory: Present CTA bilaterally; Absent accessory muscle use, wheezes or crackles *Routine Cardiovascular Exam Cardiovascular: Present RRR, Normal S1 and Normal S2; Absent murmur, gallop or rubs *Routine Abdominal Exam Abdominal: Present soft; Absent tenderness *Routine Extremities Exam Extremities: Present pulses intact; Absent cyanosis or edema *Routine Skin Exam Skin: Present intact; Absent erythema or wounds *Routine Neurological Exam Neurological: Present alert and oriented X3 Routine Psychiatric Exam Psychiatric: Present cooperative Meds Home Medications and Allergies Home Medications ?Medication ?Instructions ?Recorded ?Confirmed ?Type lisinopril 40 mg tablet 40 mg PO DAILY 06/26/24 02/28/25 History New Prescriptions to Start Prescriptions: Allergies Allergy/AdvReac Type Severity Reaction Status Date / Time No Known Allergies Allergy Verified 02/28/25 09:19 Assessment and Plan *Assessment and plan (1) Flash pulmonary edema: Status: Acute Category: Medical Code(s): J81.0 - Acute pulmonary edema (2) Respiratory failure with hypoxia: Status: Acute Category: Medical Code(s): J96.91 - Respiratory failure, unspecified with hypoxia (3) Amphetamine use: Status: Acute Category: Medical Code(s): F15.90 - Other stimulant use, unspecified, uncomplicated (4) Hypertensive emergency: Status: Acute Category: Medical Code(s): I16.1 - Hypertensive emergency Plan Hypertensive emergency - BP 190/120s with flash pulmonary edema in setting of UDS positive amphetamines - BP now normal 120/80s post 4.6L diuresis on no antihypertensives - reportedly takes Lisinopril at home - cont to trend BP Flash Pulmonary Edema - Resp failure, vol overload on CT, ProBNP 1500 - presumed secondary to hypertensive crisis from amphetamines - resolved post 4.6L diuresis - Trop normal, no angina, no ischemic changes on EKG - Cardiomegaly and LV dilation on CT, ECHO is pending Acute on Chronic Hypoxic Respiratory - known COPD, still smokes (40+ pack years), does not frequently get her inhalers refilled then presented with flash pulm edema - back to baseline post diuresis - CT here shows moderate to severe emphsema/copd, resume home inhalers - covering broad spectrum for pna Elevated glucose, possible DM - random glucose here 298 - A1C pending Hx of Iliicit Drug Use - pt states former marijuana, methamphetamines, states sober since 2019 - UDS pos for amphetamines here, pt states was from living with her sister who smokes meth - recommend complete cessation 02/28 CV summary: Pt is CV stable this morning. Further plans pending ECHO results. ADDENDUM: ECHO shows severe reduction in EF at 25% which is a new diagnosis. Will start GDMT and consent patient for LifeVest and LHC.
--- NOTE | 2025-02-28 13:57 | PC.NURSE ---
arrived from unit via wheelchair
[2025-02-28] MEDS: SODIUM CHLORIDE 3% 15ML NEB 3 ML IH (14:44)
[2025-02-28] MEDS: NICOTINE 21MG/24HR PATCH 21 MG TD (18:42)
[2025-02-28] MEDS: SACUBITRIL/VALSARTAN 24-26MG TABLET 1 EACH PO (20:41)
[2025-02-28] MEDS: ACETAMINOPHEN 325MG TAB 650 MG PO (20:46)
[2025-03-01] VITALS (13 sets, daily range): BP systolic 93–167; BP diastolic 59–95; PULSE 75–103; RESP 16–20; TEMP 36.4–36.9; O2SAT 94–97; BMI 22.1
--- NOTE | 2025-03-01 04:47 | PC.NURSE ---
Pt. is alert and orientated x 4. Pt. is on room air. Pt. doing well on room air. Pt. was admitted to the ICU for flash pulmonary edema. Pt was transferred from the ICU to med/surg yesterday, Pt. states she is supposed to go for a heart cath procedure today. Ptl EF 25%. Pt. also supposed to be fitted for a life vest. Pt. denies pain or shortness of breath. Pt. has a smith cath in place for accuarate I and O's. Pt. has had good urine output. Lung sounds diminished with fine crackles to bases. Pt. states that she is feeling better. Pt. anxious to get the heart cath done and be able to go home. Pt. sleeping well this shift. Pt. has been NPO since midnight. Personal items and call cano in reach. Bed in low and locked position. safety measures in place.
[2025-03-01] MEDS: LEVOFLOXACIN/D5W 750 MG/150 ML 750 MG/150 ML PIGGYBACK 100 MG IV (05:51)
[2025-03-01 06:22] LABS: Hematocrit 42.9 % (37.0-47.0); Hemoglobin 13.4 g/dL (12.2-16.2); Immature Granulocytes % 0.1 %; Mean Corpuscular HGB Conc 31.2 g/dL (31.8-35.4); Mean Corpuscular Hemoglobin 29.8 pg (27.0-31.2); Mean Corpuscular Volume 95.5 fl (81-99); Nucleated Red Blood Cells % 0 %; Platelet Count 242 K/mm3 (142-424); Red Blood Count 4.49 M/mm3 (4.20-5.40); Red Cell Distribution Width-SD 44.7 fL; White Blood Count 7.0 K/mm3 (4.8-10.8)
[2025-03-01 06:28] LABS: Alanine Aminotransferase 37 U/L (12-78); Albumin Level 3.9 g/dl (3.5-5.0); Albumin/Globulin Ratio 1.6 (1.1-1.8); Alkaline Phosphatase 93 U/L (38-126); Anion Gap 11.2 mEq/L (5-15); Aspartate Amino Transferase 40 U/L (14-36); Bilirubin,Total 0.7 mg/dl (0.2-1.3); Blood Urea Nitrogen 23 mg/dl (7-17); Calcium 8.9 mg/dl (8.4-10.2); Carbon Dioxide 28 mmol/L (22.0-30.0); Chloride 100 mmol/L (98-107); Creatinine Clearance Estimated 63 mL/min (50-200); Creatinine,Serum 0.90 mg/dl (0.52-1.04); Estimated Glomerular Filt Rate 64 ml/min (>60); GFR (African American) 77 ML/MIN (>60); Globulin 2.4 g/dL (1.3-3.2); Glucose 98 mg/dl (74-100); Magnesium 2.1 mg/dl (1.6-2.3); Potassium 4.2 mmoL/L (3.5-5.1); Sodium 135 mmol/L (136-145); Total Protein,Serum 6.3 g/dl (6.3-8.2)
[2025-03-01] MEDS: ACETAMINOPHEN 325MG TAB 650 MG PO (06:34)
[2025-03-01 07:38] LABS: Vitamin B12 225 pg/mL (239-931)
[2025-03-01 07:59] LABS: Folate 8.76 ng/mL
[2025-03-01] MEDS: SACUBITRIL/VALSARTAN 24-26MG TABLET 1 EACH PO (08:28)
[2025-03-01] MEDS: SPIRONOLACTONE 25MG TABLET 25 MG PO (08:28)
[2025-03-01] MEDS: FUROSEMIDE 40 MG TABLET PO (08:28)
[2025-03-01] MEDS: ASPIRIN EC 81MG TABLET 81 MG PO (08:28)
--- NOTE | 2025-03-01 09:00 | IR_ITS ---
APPROVED REPORT Patient Location: Inpatient PROCEDURES Left heart catheterization Left ventriculogram Selective coronary angiogram INDICATION New-onset cardiomyopathy ejection fraction 25% Informed consent was obtained prior to the procedure. COMPLICATIONS NONE Estimated Blood Loss: LESS THAN 10 ML TECHNIQUE One percent lidocaine used to anesthetize the right anterior aspect of the wrist. The right radial artery was accessed via the Seldinger technique. A 6 [place] sheath was placed in the right radial artery. 2.5 mg of Verapamil, 800 mcg of nitroglycerin, 1mg Lidocaine and 5000 U Heparin were given through the arterial sheath. The JL3 catheter was also used to perform left heart catheterization, left ventriculogram and selective coronary angiogram. At the end of the procedure the sheath was removed good hemostasis was achieved using Traclet band, patient was transferred to the postop holding area in stable condition. ANGIOGRAPHIC RESULTS The left main artery Normal The left anterior descending artery Is proximally normal with mid vessel 20 and 30% stenosis The circumflex artery Large dominant normal The right coronary artery Vestigial normal The ASCENCIO ventriculogram reveals Dilated globally hypokinetic ejection fraction 25% The left ventricular end-diastolic pressure 10 to 15 mmHg IMPRESSION Mild nonocclusive coronary artery disease Dilated ventricle not explained by coronary artery disease Normal EDP Reduced ejection fraction PLAN 1. Medical management for coronary artery disease as well as systolic heart failure 2. Consider cardiac MRI Electronically signed by : Jose Nevarez MD 03/01/2025 13:04:23
[2025-03-01] MEDS: METOPROLOL SUCCINATE XL 25MG TABLET 25 MG PO (09:56)
--- OUTSIDE RECORDS SUMMARY | 2025-03-01 10:29 | XMS_ITS | Clinical Summary ---
Author Organization [facility] Address [address] [place] [address] Phone Care Team Providers Care Switcher Name Role Phone Unavailable Primary Care Provider Unavailabl e Allergies No known active allergies Medications albuterol (PROAIR HFA) 90 mcg/actuation Inhl HFA Aerosol InhalerIndications :Asthmatic bronchitis, mild intermittent, uncomplicated Inhale 2 Puffs into the lungs every 6 hours as needed for Wheezing. 1 Inhaler 2 5 Active citalopram (CELEXA) 20 mg Oral TabletIndications: Depression with anxiety,DDD (degenerative disc disease), lumbar Take 1 Tablet by mouth daily. 30 Tablet 3 3 Active buPROPion (WELLBUTRIN XL) 150 mg Oral Tablet Sustained Release 24 hrIndications:Depr ession with anxiety Take 1 Tablet by mouth every morning for 90 days. 30 Tablet 3 3 Active lisinopriL-hydroch lorothiazide (PRINZIDE;ZESTORET IC) 20-12.5 mg Oral TabletIndications: Essential hypertension Take 1 Tablet by mouth 2 times daily. 60 Tablet 3 3 Active amLODIPine (NORVASC) 10 mg Oral TabletIndications: Essential hypertension Take 1 Tablet by mouth daily. 30 Tablet 5 3 Active diclofenac (VOLTAREN) 75 mg Oral Tablet, Delayed Release (E.C.)Indications: Chest wall pain Take 1 Tablet by mouth 2 times daily with meals as needed. 60 Tablet 3 Active Active Problems Patient Care Coordination No te Formatting of this note migh t be different from the original. 04/21/12csta, benzo 04/21/12 uds, 06/17/13 , 4825/15 diego 04/21/12, 06/17/13 , 09/23/14, 02/24/15 Soap 04/21/12 Letter 09/23/14 Problem Noted Date Diagnosed Date Vitamin D deficiency 06/22/2013 long-term (current) use of anticoagulants 2010 Pulmonary embolism 09/28/2010 Pain medication agreement completed 09/25/2010 Migraine 01/16/2010 Generalized anxiety disorder Depression Unspecified essential hypertension Osteoarthrosis, unspecified whether generalized or localized, unspecified site DDD (degenerative disc disease), lumbar Active smoker Resolved Problems Problem Noted Date Diagnosed Date Resolved Date Encounter for therapeutic drug monitoring 09/28/2010 01/22/2011 Diarrhea 01/22/2011 Immunizations Immunization Administration Dates Next Due Influenza Vaccine Quadrivalent 03/03/2015 Influenza Vaccine Quadrivalent PF 03/13/2023 Influenza Vaccine, Unspecified Formulation 02/21,02/22/2011,02/20/2010 Surgical History Surgery Date Site/Laterality Comments TUBAL LIGATION Medical History Medical History Date Comments Hypertension Depression Migraines PE (pulmonary embolism) Asthma COPD (chronic obstructive pulmonary disease) (HC C) Arthritis Family History Medical History Relation Name Comments Cancer Father Diabetes Mother Heart Disease Mother Relation Name Status Comments Father Mother Social History Tobacco Use Types Packs/Day Years Used Date Smoking Tobacco: Every Day Cigarettes 0.5 29 Smokeless Tobacco: Never Tobacco Cessation:Ready to Q uit: No; Counseling Given: Yes Alcohol Use Standard Drinks/Week Comments No 0 (1 standard drink = 0.6 oz pur e alcohol) PHQ-2 Answer Date Recorded PHQ-2 Total Score 3 03/13/2023 Sexually Active Control Partners Comments Yes Male Comments No Sex and Gender Information Value Date Recorded Sex Assigned at Not on file Legal Sex Female 6:08 AM EDT Gender Identity Not on file Sexual Orientation Not on file Last Filed Vital Signs Vital Sign Reading Time Taken Comments Blood Pressure 124/86 04/07/2023 1:34 PM EST Pulse 93 03/24/2023 12:55 PM EDT Temperature 36.5 C (97.7 F) 04/07/2023 1:34 PM EST Respiratory Rate 20 02/24/2015 3:42 PM EDT Oxygen Saturation 100% 03/24/2023 12:55 PM EDT Inhaled Oxygen Concentration - - Weight 66.8 kg (147 lb 4 oz) 04/07/2023 1:34 PM EST Height 167.6 cm (5' 6 ) 04/07/2023 1:34 PM EST Body Mass Index 23.77 04/07/2023 1:34 PM EST Plan of Treatment Health Maintenance Due Date Last Done Comments Hepatitis C Screening 1982 DTaP/TDaP/Td (1 - Tdap) 11/22/1983 Pneumococcal Vaccine 50+ (1 of 2 - PCV) 11/22/1983 Cervical Cancer Screening 1985 Pap Smear 1985 HPV/Pap Cotest 1994 Cologuard 2009 Colon Cancer Screening 2009 Colonoscopy 2009 FIT 2009 Sigmoidoscopy 2009 Virtual Colonography 2009 Breast Cancer Screening 09/15/2012 09/15/2010 Zoster (1 of 2) 2014 Annual Wellness Exam 03/13/2024 03/13/2023 COVID-19 Vaccine ( season) 2025 Influenza Vaccine (#1) 2025 , 03/03/2015, 02/22/2012, Additional history exists Hepatitis B Vaccine Aged Out No longe r eligible based on patient's age to complete this topic Meningococcal B Vaccine Aged Out No l onger eligible based on patient's age to complete this topic Goals Goal Patient Goal Type Associated Problems Recent Progress Patient-Stated? Author Blood Pressure < 140/90 Blood Pressure 124/86(2022 1:34 PM EST) No Eric Rowe MD Maintain a healthy diet, exercise regularly and maintain an ideal body weight General No Leatha Tellez MA Stay Tobacco Free Lifestyle No Leatha Tellez MA Procedures Procedure Name Priority Date/Time Associated Diagnosis Comments MM MAMMO DIGITAL SCREENING W CAD BILAT Routine 09/15/2010 9:04 AM EDT Lung nodule Abnormal CXR from Last 3 Months or Most Recently Relevant to Health Maintenance Results * MM MAMMO DIGITAL SCREENING W CAD BILAT (09/15/2010 9:04 AM EDT) Anatomical Region Laterality Modality Breast Bilateral Mammography 09/16/2010 11:4 6 AM EDT Impressions 09/17/2010 7:45 AM EDT : No radiographic evidence of malignancy ([id number]) ~ RECOMMENDATION: Routine screening mammogram in 1 year. ~ * The patient with a palpable abnormality, unexplained by breast imaging, should be managed on clinical basis by the attending physician. * Breast imaging has a false negative rate of 15%. * The patient was notified by mail of the results of this examination. The mammogram was reviewed by a Radiologist and CAD. Narrative 09/17/2010 7:45 AM EDT MM MAMMO DIG SCREEN CAD BILAT Bilateral CC and MLO view(s) were taken. No prior studies available for comparison. There are scattered fibroglandular densities. ~ Procedure Note RubinafabyPanchito R - 09/17/2010 MM MAMMO DIG SCREEN CAD BILAT Bilateral CC and MLO view(s) were taken. No prior studies available for comparison. There are scattered fibroglandular densities. ~ IMPRESSION: No radiographic evidence of malignancy ([id number]) ~ RECOMMENDATION: Routine screening mammogram in 1 year. ~ * The patient with a palpable abnormality, unexplained by breast imaging, should be managed on clinical basis by the attending physician. * Breast imaging has a false negative rate of 15%. * The patient was notified by mail of the results of this examination. The mammogram was reviewed by a Radiologist and CAD. Eric Rowe MD IMG MAMMOGRAPHY ORDERABLES Sole l Result from Last 3 Months or Most Recently Relevant to Health Maintenance [place] [place] [address] MEDICAID [facility] MEDICAID
[2025-03-01] MEDS: DAPAGLIFLOZIN PROPANEDIOL 10 MG TABLET PO (10:34)
--- NOTE | 2025-03-01 10:53 | P.PN_ITS ---
Subjective Subjective Date: 03/01/25 Time: 10:53 Interval history: No events overnight. Tolerating GDMT. LifeVest approved. Awaiting [facility] this morning. Exam Data for Last 24 hours Vital signs and Labs for Last 24 Hours: Temp Pulse Resp BP Pulse Ox O2 Del Method O2 Flow Rate 97.5 F L 103 H 17 123/95 H 95 Room Air 3 03/01/25 08:00 03/01/25 08:00 03/01/25 08:00 03/01/25 08:00 03/01/25 08:00 03/01/25 10:08 02/28/25 11:00 FiO2 80 02/28/25 05:33 Laboratory Results - last 24 hr 02/28/25 06:10: Urine Color Yellow, Urine Appearance Clear, Urine pH 6.0, Ur Specific Aneta 1.020, Urine Protein 2+ A, Urine Glucose (UA) 1+, Urine Ketones Negative, Urine Blood 1+ A, Urine Nitrate Negative, Urine Bilirubin Negative, Urine Urobilinogen 0.2, Ur Leukocyte Esterase Negative, Urine RBC 10-20, Urine WBC 3-5, Ur Squamous Epith Cells Occasional, Urine Bacteria 2+, Urine Opiates Screen Negative, Urine Methadone Screen Negative, Ur Barbituates Screen Negative, Ur Phencyclidine Scrn Negative, Ur Amphetamines Screen Positive H, U Benzodiazepines Scrn Negative, Urine Cocaine Screen Negative, U Marijuana (THC) Screen Negative 03/01/25 05:29: WBC 7.0 D, RBC 4.49, Hgb 13.4, Hct 42.9, MCV 95.5, MCH 29.8, MCHC 31.2 L, RDW 12.6, Plt Count 242 D, MPV 10.6 H, Neut % (Auto) 66.1, Lymph % (Auto) 23.9, [place] % (Auto) 7.2, Eos % (Auto) 2.3, Baso % (Auto) 0.4, Neut # (Auto) 4.6, Lymph # (Auto) 1.7, [place] # (Auto) 0.5, Eos # (Auto) 0.2, Baso # (Auto) 0.0, Sodium 135 L, Potassium 4.2 D, Chloride 100, Carbon Dioxide 28, Anion Gap 11.2, BUN 23 H, Creatinine 0.90, Estimated Creat Clear 63, Estimated GFR 64, Est GFR ( Amer) 77 D, Glucose 98, Calcium 8.9, Magnesium 2.1, Total Bilirubin 0.7, AST 40 H D, ALT 37, Alkaline Phosphatase 93, Total Protein 6.3, Albumin 3.9, Globulin 2.4, Albumin/Globulin Ratio 1.6, Vitamin B12 225 L, Folate 8.76 I & O for Last 24 hours: Intake & Output 02/26/25 02/27/25 02/28/25 03/01/25 23:59 23:59 23:59 23:59 Intake Total 1274.475 / 1574.475 450 / 450 Output Total 7350 / 7350 1125 / 1125 Balance -6075.525 / -5775.525 -675 / -675 Weight 132 lb 4.438 oz 133 lb Microbiology Reports for the Last 24 Hours: Microbiology 02/28/25 06:10 Urine,Catheterized Urine Culture - Preliminary Gram Negative Rods 02/28/25 15:00 Sputum - Expectorated Sputum Gram Stain - Final Constitutional Constitutional: no acute distress and cooperative *Routine HEENT Exam Eye: Present PERRL *Routine Respiratory Exam Respiratory: Present CTA bilaterally; Absent accessory muscle use, wheezes or crackles *Routine Cardiovascular Exam Cardiovascular: Present RRR, Normal S1 and Normal S2; Absent murmur, gallop or rubs *Routine Abdominal Exam Abdominal: Present soft; Absent tenderness *Routine Extremities Exam Extremities: Present pulses intact; Absent cyanosis or edema *Routine Skin Exam Skin: Present intact; Absent erythema or wounds *Routine Neurological Exam Neurological: Present alert and oriented X3 Routine Psychiatric Exam Psychiatric: Present cooperative Progress Note: A&P Assessment and plan (1) HFrEF (heart failure with reduced ejection fraction): Status: Acute (2) Hypertensive emergency: Status: Acute (3) Grade II diastolic dysfunction: Status: Acute (4) Amphetamine substance use disorder, moderate, in early remission: Status: Acute (5) CKD (chronic kidney disease) stage 3, GFR 30-59 ml/min: Status: Acute Assessment and Plan Assessment and Plan for All Diagnoses:: HFrEF - EF 25% here in setting of BP 190/120 and 7L vol overload - unknown duration but first episode of vol overload was this admission. Generally an acute/sudden ischemic event or myocarditis would have resulted in Trop elevation and hers was normal. - GDMT initiated - BB, ARNI, MRA, SGLT-2 - Pt has diuresed 7L - LiveVest approved - [facility] today - further plans pending results Hypertensive emergency - BP 190/120s with flash pulmonary edema in setting of UDS positive amphetamines and EF 25% - stable now on GDMT for HF Acute on Chronic Hypoxic Respiratory Failure - known COPD, still smokes (40+ pack years), does not frequently get her inhalers refilled then presented with flash pulm edema - also hx of smoking methamphetamines - back to baseline post diuresis - CT here shows moderate to severe emphsema/copd, resume home inhalers - covering broad spectrum for pna Elevated glucose - A1C 5.5 Hx of Iliicit Drug Use - pt states former marijuana, methamphetamines, states sober since 2019 - UDS pos for amphetamines here, pt states was from living with her sister who smokes meth - recommend complete cessation 03/01 CV summary: CV stable/improving. Tolerating GDMT. LifeVest placed. LHC pending. Possible DC today or tomorrow.
[2025-03-01] MEDS: LIDOCAINE 1% 10ML MDV 10 ML IJ (12:34)
[2025-03-01] MEDS: NITROGLYCERIN 800MCG/8ML SYR (CATH LAB) 800 MCG IA (12:34)
[2025-03-01] MEDS: HEPARIN 1,000 UNITS/500ML NS (CATH LAB) 3000 UNIT IV (12:34)
[2025-03-01] MEDS: VERAPAMIL 2.5MG/ML 2ML VIAL 2.5 MG IV (12:35)
[2025-03-01] MEDS: 0.9 % SODIUM CHLORIDE 500 ML 25 ML IV (12:35)
[2025-03-01] MEDS: HEPARIN 1,000 UNITS/ML 10ML VIAL (CATH LAB) 5000 UNIT IV (12:36)
[2025-03-01] MEDS: MIDAZOLAM HCL 1MG/ML 5ML VIAL 1 MG IV (12:49)
[2025-03-01] MEDS: FENTANYL 100MCG/2ML VIAL 50 MCG IV (12:49)
[2025-03-01] MEDS: IOPAMIDOL-370 (76%);100ML BOTTLE 75 ML IV (13:15)
--- NOTE | 2025-03-01 13:56 | EXP.DC.SUM ---
General Admission date:: 02/28/25 Discharge date: 03/01/25 HPI HPI HPI: Gauri Benitez is a 59-year-old female with a medical history significant for hypertension, substance use disorder in remission who presented with acute progressive shortness of breath. She states she awoke early this morning around 2 AM with shortness of breath which progressively became worse. Denies chest pain, fever/chills, abdominal pain. On arrival, patient was satting in the low 80s on room air in respiratory distress, in position. On arrival, patient's blood pressure was 198/119. She denies recent cough, recent sickness but does endorse her blood pressures have been always high. Workup in the ED significant for WBC 11.3, MCV 100.7, D-dimer 1.63, VBG pH 7.01 with pCO2 of 58.7, lactic acid 10.3, BNP 1500, UDS positive for amphetamines. Patient states she has not used any illicit substances for many years, but does have a family member at home that smokes methamphetamine. CTA chest suggestive of moderate to severe emphysema, pulmonary edema, and cardiomegaly. No pulmonary embolism. Patient was placed on CPAP, given DuoNebs, started on nitro drip, given IV Lasix 40 mg and levofloxacin 750 mg. Given these findings, ED provider discussed case with me and I decided to admit patient for flash pulmonary edema, hypertensive emergency, suspected heart failure. Hospital Course Hospital Course Hospital Course: Gauri Benitez is a 59-year-old female with a medical history significant for hypertension, substance use disorder in remission who presented with acute progressive shortness of breath. She states she awoke early this morning around 2 AM with shortness of breath which progressively became worse. Denies chest pain, fever/chills, abdominal pain. On arrival, patient was satting in the low 80s on room air in respiratory distress, in position. On arrival, patient's blood pressure was 198/119. She denies recent cough, recent sickness but does endorse her blood pressures have been always high. Workup in the ED significant for WBC 11.3, MCV 100.7, D-dimer 1.63, VBG pH 7.01 with pCO2 of 58.7, lactic acid 10.3, BNP 1500, UDS positive for amphetamines. Patient states she has not used any illicit substances for many years, but does have a family member at home that smokes methamphetamine. CTA chest suggestive of moderate to severe emphysema, pulmonary edema, and cardiomegaly. No pulmonary embolism. Patient was placed on CPAP, given DuoNebs, started on nitro drip, given IV Lasix 40 mg and levofloxacin 750 mg. Given these findings, ED provider discussed case with me and I decided to admit patient for flash pulmonary edema, hypertensive emergency, suspected heart failure. She responded well to aggressive diuresis. Down almost 8 L negative with diuresis. Given her clinical improvement, transition to guideline directed management for her heart failure. Stable discharge home with close follow-up with cardiology. Workup and problems addressed as follows: #Acute hypoxic respiratory failure, resolved #Flash pulmonary edema, hypertensive emergency #HFrEF exacerbation #Grade 2 diastolic dysfunction #Lactic acidosis ? Patient presented with acute shortness of breath and found to be in flash pulmonary edema in setting of hypertensive emergency. UDS positive for amphetamines. ECHO 02/28/2025 reveals LVEF 25%, G2DD, asynchronous septum. Initial BNP 1500. Significantly improved with IV Lasix 80 mg. Continued 40 mg p.o. daily. Diuresed over 7.7 L negative volume status during admission. On room air for 24 hours prior to discharge home. Cardiology was consulted. Taken for left heart cath on 03/01. Did not have any occlusive disease in her coronary arteries. Will initiate goal-directed management. Continue Farxiga 10 mg daily, Lasix 40 mg daily, metoprolol succinate 25 mg daily, spironolactone 25 mg daily, Entresto 24/26 mg twice daily and aspirin 81 mg daily. A1c 5.5%, LDL 67, TSH slightly elevated 4.76 but free T4 normal. ? Given her EF less than 35%, was fitted for LifeVest on morning of discharge. Plan for close follow-up within the next week with cardiology for further management and medication adjustment. - Electrolytes and kidney function stable on day of discharge. Calcium 8.9, magnesium 2.1, potassium 4.2, BUN 23 and creatinine 0.9 #Chronic hypercapnic respiratory failure #Chronic tobacco smoker ? VBG pCO2 in the 50s, without acute signs of decompensation. Patient is a chronic smoker. DuoNebs during admission. No oxygen requirement during admission. #LUCILLE versus CKD stage IIIa ? Kidney function appeared stable during admission. Creatinine 0.9 on day of discharge. LUCILLE ruled out. #Substance use disorder ? UDS positive for amphetamines. Patient denies using illicit substances for many years, endorses family member at home smokes and abdomen. Total time spent on discharge 32 minutes in counseling, documentation, chart review, and direct care with patient. Exam Data for Last 24 hours Vital signs and Labs for Last 24 Hours: Temp Pulse Resp BP Pulse Ox O2 Del Method O2 Flow Rate 97.5 F L 85 18 94/59 L 94 L Room Air 3 03/01/25 12:00 03/01/25 13:10 03/01/25 13:10 03/01/25 13:10 03/01/25 13:10 03/01/25 13:26 02/28/25 11:00 FiO2 80 02/28/25 05:33 Laboratory Results - last 24 hr 02/28/25 06:10: Urine Color Yellow, Urine Appearance Clear, Urine pH 6.0, Ur Specific [place] 1.020, Urine Protein 2+ A, Urine Glucose (UA) 1+, Urine Ketones Negative, Urine Blood 1+ A, Urine Nitrate Negative, Urine Bilirubin Negative, Urine Urobilinogen 0.2, Ur Leukocyte Esterase Negative, Urine RBC 10-20, Urine WBC 3-5, Ur Squamous Epith Cells Occasional, Urine Bacteria 2+, Urine Opiates Screen Negative, Urine Methadone Screen Negative, Ur Barbituates Screen Negative, Ur Phencyclidine Scrn Negative, Ur Amphetamines Screen Positive H, U Benzodiazepines Scrn Negative, Urine Cocaine Screen Negative, U Marijuana (THC) Screen Negative 03/01/25 05:29: WBC 7.0 D, RBC 4.49, Hgb 13.4, Hct 42.9, MCV 95.5, MCH 29.8, MCHC 31.2 L, RDW 12.6, Plt Count 242 D, MPV 10.6 H, Neut % (Auto) 66.1, Lymph % (Auto) 23.9, [place] % (Auto) 7.2, Eos % (Auto) 2.3, Baso % (Auto) 0.4, Neut # (Auto) 4.6, Lymph # (Auto) 1.7, [place] # (Auto) 0.5, Eos # (Auto) 0.2, Baso # (Auto) 0.0, Sodium 135 L, Potassium 4.2 D, Chloride 100, Carbon Dioxide 28, Anion Gap 11.2, BUN 23 H, Creatinine 0.90, Estimated Creat Clear 63, Estimated GFR 64, Est GFR ( Amer) 77 D, Glucose 98, Calcium 8.9, Magnesium 2.1, Total Bilirubin 0.7, AST 40 H D, ALT 37, Alkaline Phosphatase 93, Total Protein 6.3, Albumin 3.9, Globulin 2.4, Albumin/Globulin Ratio 1.6, Vitamin B12 225 L, Folate 8.76 I & O for Last 24 hours: Intake & Output 02/26/25 02/27/25 02/28/25 03/01/25 23:59 23:59 23:59 23:59 Intake Total 1274.475 / 1574.475 450 / 450 Output Total 7350 / 7350 2074 / 2075 Balance -6075.525 / -5775.525 -1625 / -1625 Weight 60 kg 60.328 kg Microbiology Reports for the Last 24 Hours: Microbiology 02/28/25 06:10 Urine,Catheterized Urine Culture - Preliminary Gram Negative Rods 02/28/25 15:00 Sputum - Expectorated Sputum Gram Stain - Final Constitutional Constitutional: no acute distress, average body habitus, chronically ill appearing and cooperative *Routine HEENT Exam Head: Present normocephalic and atraumatic Eye: Present EOMI and PERRL ENT: Present mucous membranes moist *Routine Neck Exam Neck: Present supple *Routine Respiratory Exam Respiratory: Present CTA bilaterally; Absent accessory muscle use, rhonchi, wheezes or crackles *Routine Cardiovascular Exam Cardiovascular: Present RRR, Normal S1 and Normal S2; Absent murmur, gallop or rubs *Routine Abdominal Exam Abdominal: Present soft; Absent tenderness *Routine Rectal Exam Patient deferred: visual exam *Routine Exam Patient deferred: external exam *Routine Extremities Exam Extremities: Present pulses intact; Absent cyanosis, clubbing or edema *Routine Skin Exam Skin: Present intact; Absent erythema or wounds *Routine Neurological Exam Neurological: Present alert, oriented X3 and moving all extremities; Absent altered mental status Routine Psychiatric Exam Psychiatric: Present cooperative Results Data Completed and Pending Labs on day of discharge: Labs from last 24 hours 03/01/25 02/28/25 05:29 06:10 WBC 7.0 D RBC 4.49 Hgb 13.4 Hct 42.9 MCV 95.5 MCH 29.8 MCHC 31.2 L RDW 12.6 Plt Count 242 D MPV 10.6 H Neut % (Auto) 66.1 Lymph % (Auto) 23.9 [place] % (Auto) 7.2 Eos % (Auto) 2.3 Baso % (Auto) 0.4 Neut # (Auto) 4.6 Lymph # (Auto) 1.7 [place] # (Auto) 0.5 Eos # (Auto) 0.2 Baso # (Auto) 0.0 Sodium 135 L Potassium 4.2 D Chloride 100 Carbon Dioxide 28 Anion Gap 11.2 BUN 23 H Creatinine 0.90 Estimated Creat Clear 63 Estimated GFR 64 Est GFR ( Amer) 77 D Glucose 98 Calcium 8.9 Magnesium 2.1 Total Bilirubin 0.7 AST 40 H D ALT 37 Alkaline Phosphatase 93 Total Protein 6.3 Albumin 3.9 Globulin 2.4 Albumin/Globulin Ratio 1.6 Vitamin B12 225 L Folate 8.76 Urine Color Yellow Urine Appearance Clear Urine pH 6.0 Ur Specific [place] 1.020 Urine Protein 2+ A Urine Glucose (UA) 1+ Urine Ketones Negative Urine Blood 1+ A Urine Nitrate Negative Urine Bilirubin Negative Urine Urobilinogen 0.2 Ur Leukocyte Esterase Negative Urine RBC 10-20 Urine WBC 3-5 Ur Squamous Epith Cells Occasional Urine Bacteria 2+ Urine Opiates Screen Negative Urine Methadone Screen Negative Ur Barbituates Screen Negative Ur Phencyclidine Scrn Negative Ur Amphetamines Screen Positive H U Benzodiazepines Scrn Negative Urine Cocaine Screen Negative U Marijuana (THC) Screen Negative Preliminary micro results at discharge 02/28/25 06:10 Urine Culture - Preliminary Urine,Catheterized Gram Negative Rods DS: Diagnosis Discharge Diagnosis (1) HFrEF (heart failure with reduced ejection fraction): Status: Acute Code(s): I50.20 - Unspecified systolic (congestive) heart failure (2) Hypertensive emergency: Status: Acute Code(s): I16.1 - Hypertensive emergency (3) Grade II diastolic dysfunction: Status: Acute Code(s): I51.89 - Other ill-defined heart diseases (4) Amphetamine substance use disorder, moderate, in early remission: Status: Acute Code(s): F15.21 - Other stimulant dependence, in remission (5) CKD (chronic kidney disease) stage 3, GFR 30-59 ml/min: Status: Acute Code(s): N18.30 - Chronic kidney disease, stage 3 unspecified (6) Flash pulmonary edema: Status: Acute Code(s): J81.0 - Acute pulmonary edema (7) Respiratory failure with hypoxia: Status: Acute Code(s): J96.91 - Respiratory failure, unspecified with hypoxia Meds Home Medications and Allergies Home Medications ?Medication ?Instructions ?Recorded ?Confirmed ?Type aspirin 81 mg tablet,delayed 81 mg PO DAILY #30 tabs 03/01/25 Rx release dapagliflozin propanediol 10 mg 10 mg PO DAILY #30 tabs 03/01/25 Rx tablet (Farxiga) furosemide 40 mg tablet 40 mg PO DAILY 30 days #30 tabs 03/01/25 Rx metoprolol succinate 25 mg 25 mg PO DAILY 30 days #30 tabs 03/01/25 Rx tablet,extended release 24 hr sacubitril 24 mg-valsartan 26 mg 1 tab PO BID #60 tabs 03/01/25 Rx tablet (Entresto) spironolactone 25 mg tablet 25 mg PO DAILY 30 days #30 tabs 03/01/25 Rx New Prescriptions to Start Prescriptions: Cuauhtemoc Ford dapagliflozin propanediol [Farxiga] Cuauhtemoc Philippe furosemide Cuauhtemoc Philippe metoprolol succinate Cuauhtemoc Philippe sacubitril-valsartan [Entresto] Cuauhtemoc Philippe spironolactone Cuauhtemoc Philippe Allergies Allergy/AdvReac Type Severity Reaction Status Date / Time No Known Allergies Allergy Verified 02/28/25 09:19 Discharge Plan Disposition Patient Disposition: Home, Self-Care Condition: Fair Discharge Order Discharge Orders: Discharge Order (Routine); Ordered 03/01/25 Ordered By: Cuauhtemoc Philippe Follow up Plan Follow up with: Burt Meza PA [[facility], Cardiology] - 03/15/25 10:30 am Craig Juarez [Referring, Medical] - 03/07/25 10:00 am Prescriptions/Medication Reconciliation: New aspirin 81 mg Tablet,Delayed Release (Dr/Ec) 81 mg PO DAILY Qty: 30 0RF dapagliflozin propanediol [Farxiga] 10 mg Tablet 10 mg PO DAILY Qty: 30 0RF furosemide 40 mg Tablet 40 mg PO DAILY 30 Days Qty: 30 0RF metoprolol succinate 25 mg Tablet Extended Release 24 Hr 25 mg PO DAILY 30 Days Qty: 30 0RF sacubitril-valsartan [Entresto] 24-26 mg Tablet 1 tab PO BID Qty: 60 0RF spironolactone 25 mg Tablet 25 mg PO DAILY 30 Days Qty: 30 0RF Discontinued lisinopril 40 mg Tablet 40 mg PO DAILY Problem Reconciliation Problems Reviewed?: Yes Patient Discharge Instructions ACTIVITY: Continue current activity DIET: continue same diet Patient Instructions: Heart Failure, DI for Kidney Failure, DI for Pneumonia in Adults, Stop Light Pneumonia, Stop Light Heart Failure, Stop Light Infection Print Language: Czech Providers Primary Care Provider: Provider,Referral Admit Provider: Nico Vela Attending Provider: Nico Vela
--- NOTE | 2025-03-02 11:51 | PC.NURSE ---
pts final urine culture forwarded to the hospitalist as she was admitted.
--- NOTE | 2025-03-03 10:19 | SW/DCPLANNER ---
Phoned patient x2. Left messages with name and call back number. Sona Parish
== END 2025-03-01 15:41 | disposition home or self-care (01) ==
LOC: ER 07:39 → ICU 07:57 → 2ND 03-01 03:03 → ICU 03-02 07:47
PROVIDERS: Emergency Medicine; Internal Medicine; Admitting Provider Student in an Organized Health Care Education/Training Program; Emergency Provider Student in an Organized Health Care Education/Training Program; Visit Provider Student in an Organized Health Care Education/Training Program
PROC: 4A023N7 Measurement of Cardiac Sampling and Pressure, Left Heart, Percutaneous Approach (ICD-10-PCS; CPT 93452; principal; 2025-03-01 11:00)
DX: J96.21 Acute and chronic respiratory failure with hypoxia (principal); J96.22 Acute and chronic respiratory failure with hypercapnia; I16.1 Hypertensive emergency; I13.0 Hypertensive heart and chronic kidney disease with heart failure and stage 1 through stage 4 chronic kidney disease, or unspecified chronic kidney disease; N18.31 Chronic kidney disease, stage 3a; I50.40 Unspecified combined systolic (congestive) and diastolic (congestive) heart failure; I25.10 Atherosclerotic heart disease of native coronary artery without angina pectoris; J43.2 Centrilobular emphysema; D75.89 Other specified diseases of blood and blood-forming organs; R73.9 Hyperglycemia, unspecified; E87.20 Acidosis, unspecified; F15.21 Other stimulant dependence, in remission; Z79.82 Long term (current) use of aspirin; Z79.899 Other long term (current) drug therapy; Z86.711 Personal history of pulmonary embolism; F17.200 Nicotine dependence, unspecified, uncomplicated; Z83.3 Family history of diabetes mellitus
CPT/HCPCS: 36415; 51702; 71045; 71275; 80053; 80061; 80307; 81001; 82550; 82607; 82746; 82803; 83036; 83605; 83735; 83880; 84100; 84436; 84439; 84443; 84484; 85025; 85378; 86803; 87070; 87081; 87086; 87088; 87186; 87205; 87389; 89220; 93005; 93306; 93458; 96365; 96372; 96375; 99152; 99285; C1725; C1769; G0378; J1200; J1450; J1644; J1650; J1938; J1956; J2003; J2250; J3010; J7040; Q9967